=== PATIENT | female | born 1990 | race Caucasian/White ===

== ENCOUNTER 2020-06-01 10:24 | Outpatient (REF) | payer OTHER, SELFPAY ==
[2020-06-01 10:53] LABS: COVID-19 Test Negative (Negative)
== END 2020-06-01 10:25 | disposition home or self-care (01) ==
LOC: HO.EMPCOV 10:24
PROVIDERS: Visit Provider Internal Medicine
DX: Z20.828 Contact with and (suspected) exposure to other viral communicable diseases (principal)
CPT/HCPCS: 36415; 87635; C9803

== ENCOUNTER 2020-06-04 10:46 | Outpatient (REF) | payer OTHER, SELFPAY ==
[2020-06-04 11:07] LABS: COVID-19 Test Negative (Negative)
== END 2020-06-04 10:47 | disposition home or self-care (01) ==
LOC: HO.LAB 10:46
PROVIDERS: Visit Provider Internal Medicine
DX: Z20.822 Contact with and (suspected) exposure to COVID-19 (principal)
CPT/HCPCS: 36415; 87635; C9803

== ENCOUNTER 2020-06-07 07:16 | Outpatient (REF) | payer OTHER, SELFPAY ==
[2020-06-07 07:29] LABS: COVID-19 Test Positive (Negative); IDNOW Serial# 55D5AD1C
== END 2020-06-07 07:17 | disposition home or self-care (01) ==
LOC: HO.EMPCOV 07:16
PROVIDERS: Visit Provider Internal Medicine
DX: Z20.822 Contact with and (suspected) exposure to COVID-19 (principal)
CPT/HCPCS: 36415; 87635; C9803

== ENCOUNTER → 2021-01-18 08:56 | Outpatient (BNVA) | payer OTHER, SELFPAY | PROVIDERS: Visit Provider Internal Medicine | DX: Z76.89 Persons encountering health services in other specified circumstances (principal) | CPT/HCPCS: 99202 ==

== ENCOUNTER 2021-03-02 07:38 | Outpatient (REF) | payer OTHER, SELFPAY ==
[2021-03-02 07:59] LABS: COVID-19 Test Negative (Negative)
== END 2021-03-02 07:39 | disposition home or self-care (01) ==
LOC: HO.LAB 07:38
PROVIDERS: Visit Provider Internal Medicine
DX: Z20.822 Contact with and (suspected) exposure to COVID-19 (principal)
CPT/HCPCS: 36415; 87635; C9803

== ENCOUNTER 2021-03-03 08:14 | Outpatient (REF) | payer OTHER, SELFPAY | END 2021-03-03 08:15 | disposition home or self-care (01) | LOC: HO.LAB 08:14 | PROVIDERS: Visit Provider Internal Medicine | DX: Z20.822 Contact with and (suspected) exposure to COVID-19 (principal) | CPT/HCPCS: C9803; U0003; U0005 ==

== ENCOUNTER 2021-06-18 07:14 | Outpatient (REF) | payer OTHER, SELFPAY ==
[2021-06-18 07:42] LABS: MANUAL DIFF FLAG NO
[2021-06-18 07:48] LABS: Basophils Absolute Auto 0.1 X10*3/uL (0.0-0.2); Basophils Percent Auto 0.5 % (0-2); Eosinophils Absolute Auto 0.6 X10*3/uL (0.0-0.4); Eosinophils Percent Auto 5.4 % (0-4); Hematocrit 39.3 % (37.0-47.0); Imm Gran Abs Auto 0.07 X10*3/uL (0.00-0.03); Imm Gran Pct Auto 0.6 % (0.0-0.4); Lymphocytes Absolute Auto 3.8 X10*3/uL (1.2-4.9); Lymphocytes Percent Auto 31.7 % (20-40); Mean Corpuscular HGB Conc 33.1 g/dl (31.0-35.0); Mean Corpuscular Hemoglobin 28.9 pg (27.0-33.0); Mean Corpuscular Volume 87.3 fL (80.0-98.0); Mean Platelet Volume 10.5 fL (9.4-12.3); Monocytes Absolute Auto 0.6 X10*3/uL (0.1-1.2); Monocytes Percent Auto 5.3 % (2-11); Neutrophils Absolute Auto 6.8 x10*3/uL (2.0-8.3); Neutrophils Percent Auto 56.5 % (45-73); Platelet Count 382 X10*3/uL (160-400); Red Cell Distribution Width 12.8 % (11.0-16.0); White Blood Count 11.9 X10*3/uL (4.8-10.8)
[2021-06-18 08:35] LABS: Erythrocyte Sedimentation Rate 16 MM/HR (0-20)
[2021-06-20 17:32] LABS: Thyroglobulin Antibodies <1 IU/mL (< or = 1); Thyroid Peroxidase Antibodies 5 IU/mL (<9)
[2021-06-20 22:01] LABS: Prot Elec - Albumin 3.9 g/dL (3.8-4.8); Prot Elec - Alpha1 0.3 g/dL (0.2-0.3); Prot Elec - Beta 1 0.5 g/dL (0.4-0.6); Prot Elec - Beta 2 0.4 g/dL (0.2-0.5); Prot Elec - Gamma 1.2 g/dL (0.8-1.7); Prot Elec - Total Protein 7.3 g/dL (6.1-8.1)
[2021-06-27 16:11] LABS: Immunoglobulin E 1458 kU/L (<OR=114)
== END 2021-06-18 07:15 | disposition home or self-care (01) ==
LOC: HO.LAB 07:14
PROVIDERS: PCP Internal Medicine; Visit Provider Allergy & Immunology
DX: K20.0 Eosinophilic esophagitis (principal); L50.9 Urticaria, unspecified
CPT/HCPCS: 36415; 82785; 83520; 84165; 85025; 85652; 86003; 86376; 86800

== ENCOUNTER 2021-09-19 08:15 | Outpatient (REF) | payer OTHER, SELFPAY ==
[2021-09-19 10:29] LABS: HBS Num1 34.26 mIU/mL (0-7.99); ~Hepatitis B Surface Antibody REACTIVE (Nonreactive)
[2021-09-21 05:17] LABS: Mumps Virus IgG Antibody <9.00 AU/mL
== END 2021-09-19 08:16 | disposition home or self-care (01) ==
LOC: HO.LAB 08:15
PROVIDERS: Visit Provider Internal Medicine
DX: Z00.00 Encounter for general adult medical examination without abnormal findings (principal); Z11.1 Encounter for screening for respiratory tuberculosis
CPT/HCPCS: 36415; 86481; 86706; 86735; 86762; 86765; 86787

== ENCOUNTER 2022-07-18 16:27 | Emergency (ER) | payer OTHER, SELFPAY ==
--- NOTE | ~2022-07-18 | XR_ITS ---
EXAMINATION: XR CHEST CLINICAL INFORMATION: Shortness of breath COMPARISON: None TECHNIQUE: Frontal view of the chest was obtained. FINDINGS: No significant abnormality is noted involving the heart, lungs, mediastinum, bony thorax or soft tissues. XR/XR chest 1V IMPRESSION: Unremarkable examination.
--- NOTE | 2022-07-18 16:29 | ED.GENADULT ---
HPI - General Adult General Chief complaint: Arrhythmia/Palpitations Stated complaint: Tachycardia/SOB Time Seen by Provider: 07/18/22 20:32 Related Data Allergies Allergy/AdvReac Type Severity Reaction Status Date / Time amoxicillin Allergy Hives Verified 07/18/22 16:30 neomycin Allergy Hives Verified 07/18/22 16:30 Penicillins [PCN] Allergy Hives Verified 07/18/22 16:30 Sulfa (Sulfonamide Allergy Hives Verified 07/18/22 16:30 Antibiotics) [facility] Social History Social History Advance Directives: No Advance Directives Information Provided: No Physical Exam ED Vital Signs: BMI result Body Mass Index 39.9 Course Course Course Narrative: RME--31yo F w/PMHx asthma c/o tachyacrdia with HR 120-150 for the past 30mins per watch with exertional SOB. Reports associated shakiness. Denies CP, nausea/vomiting, recent travel, history of clots, cigarette smoking, oral OCPs Patient anxious on arrival heart rate 138 EKG, labs, TSH ordered Medications Administered Discontinued Medications Generic Name Dose Route Start Last Admin Trade Name Freq PRN Reason Stop Dose Admin Sodium Chloride 1,000 mls @ 999 mls/hr 07/18/22 20:42 07/18/22 21:53 Ns IV 07/18/22 21:42 Infused .Q1H1M ONE Infusion Lorazepam 2 mg 07/18/22 20:49 07/18/22 20:53 Lorazepam 1 Mg Tablet PO 07/18/22 20:50 2 mg ONCE ONE Administration Medical Decision Making Lab Data 07/18/22 16:56 07/18/22 16:56 Labs: Lab Results 07/18/22 07/18/22 07/18/22 Range/Units 16:56 16:56 16:56 WBC 12.1 H (4.8-10.8) X10*3/uL RBC 4.65 (4.20-5.50) X10*6/uL Hgb 12.9 (12.0-16.0) g/dl Hct 39.1 (37.0-47.0) % MCV 84.1 (80.0-98.0) fL MCH 27.7 (27.0-33.0) pg MCHC 33.0 (31.0-35.0) g/dl RDW 12.7 (11.0-16.0) % Plt Count 389 (160-400) X10*3/uL MPV 11.3 (9.4-12.3) fL Immature Gran % (Auto) 0.3 (0.0-0.4) % Neut % (Auto) 64.7 (45-73) % Lymph % (Auto) 28.2 (20-40) % [place] % (Auto) 4.7 (2-11) % Eos % (Auto) 1.5 (0-4) % Baso % (Auto) 0.6 (0-2) % Lymph # (Auto) 3.4 (1.2-4.9) X10*3/uL [place] # (Auto) 0.6 (0.1-1.2) X10*3/uL Eos # (Auto) 0.2 (0.0-0.4) X10*3/uL Baso # (Auto) 0.1 (0.0-0.2) X10*3/uL Abs Immat Gran (auto) 0.04 H (0.00-0.03) X10*3/uL Absolute Neuts (auto) 7.8 (2.0-8.3) x10*3/uL Absolute Nucleated RBC 0.000 (0.0-0.012) X10*3/uL Nucleated RBC % (auto) 0.0 (0.0-0.2) /100WBC PT 12.2 (10.0-13.1) SEC INR 1.1 (0.9-1.1) Sodium 139 (135-145) mmol/L Potassium 4.1 (3.3-5.1) mmol/L Chloride 104 (96-108) mmol/L Carbon Dioxide 24 (22-29) mmol/L Anion Gap 15 (12-20) BUN 11 (9-16) mg/dL Creatinine 0.80 (0.5-1.4) mg/dL Estim Creat Clear Calc 126.1 Estimated GFR > 60 Random Glucose 95 (60-115) mg/dL Calcium 9.5 (8.4-10.2) mg/dL Magnesium 1.8 (1.6-2.6) mg/dL Total Bilirubin 0.3 (0.0-1.0) mg/dL Direct Bilirubin < 0.2 (0.0-0.5) mg/dL AST 12 (5-31) U/L ALT 16 (0-31) U/L Alkaline Phosphatase 86 (39-117) U/L Troponin I High Sens (<3.5-17.0) ng/L Total Protein 7.6 (6.5-8.0) g/dL Albumin 4.2 (3.5-5.0) g/dL TSH 5.24 H (0.32-4.0) uIU/mL Free T4 1.00 (0.71-1.85) ng/dL Beta HCG, Quant < 2 mIU/mL COVID-19 (FRANK) (Negative) COVID-19 Clin Com Influenza Type A (JOELLE) (Negative) Influenza Type B (JOELLE) (Negative) Influenza A & B Note 07/18/22 07/18/22 07/18/22 Range/Units 16:56 16:56 16:56 WBC (4.8-10.8) X10*3/uL RBC (4.20-5.50) X10*6/uL Hgb (12.0-16.0) g/dl Hct (37.0-47.0) % MCV (80.0-98.0) fL MCH (27.0-33.0) pg MCHC (31.0-35.0) g/dl RDW (11.0-16.0) % Plt Count (160-400) X10*3/uL MPV (9.4-12.3) fL Immature Gran % (Auto) (0.0-0.4) % Neut % (Auto) (45-73) % Lymph % (Auto) (20-40) % [place] % (Auto) (2-11) % Eos % (Auto) (0-4) % Baso % (Auto) (0-2) % Lymph # (Auto) (1.2-4.9) X10*3/uL [place] # (Auto) (0.1-1.2) X10*3/uL Eos # (Auto) (0.0-0.4) X10*3/uL Baso # (Auto) (0.0-0.2) X10*3/uL Abs Immat Gran (auto) (0.00-0.03) X10*3/uL Absolute Neuts (auto) (2.0-8.3) x10*3/uL Absolute Nucleated RBC (0.0-0.012) X10*3/uL Nucleated RBC % (auto) (0.0-0.2) /100WBC PT (10.0-13.1) SEC INR (0.9-1.1) Sodium (135-145) mmol/L Potassium (3.3-5.1) mmol/L Chloride (96-108) mmol/L Carbon Dioxide (22-29) mmol/L Anion Gap (12-20) BUN (9-16) mg/dL Creatinine (0.5-1.4) mg/dL Estim Creat Clear Calc Estimated GFR Random Glucose (60-115) mg/dL Calcium (8.4-10.2) mg/dL Magnesium (1.6-2.6) mg/dL Total Bilirubin (0.0-1.0) mg/dL Direct Bilirubin (0.0-0.5) mg/dL AST (5-31) U/L ALT (0-31) U/L Alkaline Phosphatase (39-117) U/L Troponin I High Sens < 3.5 (<3.5-17.0) ng/L Total Protein (6.5-8.0) g/dL Albumin (3.5-5.0) g/dL TSH (0.32-4.0) uIU/mL Free T4 (0.71-1.85) ng/dL Beta HCG, Quant mIU/mL COVID-19 (FRANK) Negative (Negative) COVID-19 Clin Com See Note Influenza Type A (JOELLE) Negative (Negative) Influenza Type B (JOELLE) Negative (Negative) Influenza A & B Note See Note Discharge Plan Discharge Clinical Impression: Palpitations, Sinus tachycardia, Anxiety Patient Disposition: Home, Self-Care Instructions: Tachycardia (ED) Referrals: Tammie Gibson MD [Primary Care Provider] - Lyndon Pompa MD [Physician] - Stand Alone Forms: Work/School Release Interventions: ED Discharge Assessment Last Done: 07/18/22 22:13 Discharge Date/Time: 07/18/22 22:19
--- NOTE | 2022-07-18 16:30 | ECG_ITS ---
Test Reason : ARRHYTHMIA/PAPLUTATION Blood Pressure : / mmHG Vent. Rate : 125 BPM Atrial Rate : 125 BPM P-R Int : 140 ms QRS Dur : 078 ms QT Int : 304 ms P-R-T Axes : 064 052 034 degrees QTc Int : 438 ms Sinus tachycardia Otherwise normal ECG No previous ECGs available Referred By: Charito Denis Electronically Signed By:BRYCE LIMON
[2022-07-18 16:31] VITALS: BP 148/85; PULSE 135; RESP 18; TEMP 36.8; O2SAT 98; BMI 39.9
[2022-07-18 17:05] LABS: MANUAL DIFF FLAG NO
[2022-07-18 17:20] LABS: Basophils Absolute Auto 0.1 X10*3/uL (0.0-0.2); Basophils Percent Auto 0.6 % (0-2); Eosinophils Absolute Auto 0.2 X10*3/uL (0.0-0.4); Eosinophils Percent Auto 1.5 % (0-4); Hematocrit 39.1 % (37.0-47.0); Hemoglobin 12.9 g/dl (12.0-16.0); Imm Gran Abs Auto 0.04 X10*3/uL (0.00-0.03); Imm Gran Pct Auto 0.3 % (0.0-0.4); Lymphocytes Absolute Auto 3.4 X10*3/uL (1.2-4.9); Lymphocytes Percent Auto 28.2 % (20-40); Mean Corpuscular Hemoglobin 27.7 pg (27.0-33.0); Mean Corpuscular Volume 84.1 fL (80.0-98.0); Mean Platelet Volume 11.3 fL (9.4-12.3); Monocytes Absolute Auto 0.6 X10*3/uL (0.1-1.2); Monocytes Percent Auto 4.7 % (2-11); Neutrophils Absolute Auto 7.8 x10*3/uL (2.0-8.3); Neutrophils Percent Auto 64.7 % (45-73); Platelet Count 389 X10*3/uL (160-400); Red Blood Count 4.65 X10*6/uL (4.20-5.50); Red Cell Distribution Width 12.7 % (11.0-16.0); White Blood Count 12.1 X10*3/uL (4.8-10.8)
[2022-07-18 17:27] LABS: INTERNATIONAL NORM RATIO 1.1 (0.9-1.1); Prothrombin Time 12.2 SEC (10.0-13.1)
[2022-07-18 17:31] LABS: COVID-19 Test Negative (Negative); IDNOW Serial# 9DB6401D; IDNOW Serial# BCCEAD1C; Influenza A Negative (Negative); Influenza B2 Negative (Negative)
[2022-07-18 17:45] LABS: Alanine Aminotransferase 16 U/L (0-31); Albumin Level 4.2 g/dL (3.5-5.0); Alkaline Phosphatase 86 U/L (39-117); Anion Gap 15 (12-20); Aspartate Amino Transferase 12 U/L (5-31); Bilirubin Direct < 0.2 mg/dL (0.0-0.5); Bilirubin Total 0.3 mg/dL (0.0-1.0); Blood Urea Nitrogen 11 mg/dL (9-16); Calcium 9.5 mg/dL (8.4-10.2); Carbon Dioxide 24 mmol/L (22-29); Chloride 104 mmol/L (96-108); Creatinine Clr Calc Pharmacy 126.1; Estimated Glomerular Filt Rate > 60; Glucose Random 95 mg/dL (60-115); Magnesium 1.8 mg/dL (1.6-2.6); Potassium 4.1 mmol/L (3.3-5.1); Sodium 139 mmol/L (135-145); Total Protein 7.6 g/dL (6.5-8.0)
[2022-07-18 17:49] LABS: Troponin-I High Sensitivity < 3.5 ng/L (<3.5-17.0)
[2022-07-18 18:08] LABS: HCG Quantitative < 2 mIU/mL; TSH reflex Free T4 5.24 uIU/mL (0.32-4.0)
[2022-07-18 19:56] VITALS: PULSE 109; RESP 12; O2SAT 98
[2022-07-18 20:18] VITALS: BP 133/71; PULSE 105; RESP 15; O2SAT 97
--- NOTE | 2022-07-18 20:35 | PC.NURSE ---
Pt resting on stretcher at this time, reports feeling possibly a migraine coming on, denies any other pain at this time, all vitals WNL except for HR which is currently 112. MD Huerta in seeing pt at this time
--- NOTE | 2022-07-18 20:43 | ED_ITS ---
HPI - Arrhythmia/Palpitations General Chief Complaint: Arrhythmia/Palpitations Stated Complaint: Tachycardia/SOB Time Seen by Provider: 07/18/22 20:32 Source: patient and family (Mother) Mode of arrival: ambulatory Limitations: no limitations History of Present Illness HPI narrative: 31-year-old female walked into the emergency department after noticed a palpitation and rapid heartbeat on her watch. Patient stated that she suffer from anxiety and feel anxious while she is in the emergency department which is not helping her tachycardia, no CP, no SOB, no known thyroid problem, no dizziness. Related Data Allergies Allergy/AdvReac Type Severity Reaction Status Date / Time amoxicillin Allergy Hives Verified 07/18/22 16:30 neomycin Allergy Hives Verified 07/18/22 16:30 Penicillins [PCN] Allergy Hives Verified 07/18/22 16:30 Sulfa (Sulfonamide Allergy Hives Verified 07/18/22 16:30 Antibiotics) Review of Systems Review of Systems: All other systems are reviewed and are negative Constitutional: Reports as per HPI and Reports no additional constitutional complaints Eyes: Reports as per HPI and Reports no additional eye complaints Reports system reviewed and no additional complaints, except as documented Cardiovascular: Reports as per HPI and Reports no additional cardiovascular complaints Respiratory: Reports as per HPI and Reports no additional respiratory complaints Gastrointestinal: Reports as per HPI and Reports no additional gastrointestinal complaints Genitourinary: Reports no additional female genitourinary complaints Musculoskeletal: Reports no additional musculoskeletal complaints Skin/Breast: Reports system reviewed and no additional complaints, except as docu Psychiatric: Reports no additional psychiatric complaints Endocrine: Reports no additional endocrine complaints Hematologic/Lymphatic: Reports no additional hematologic/lymphatic complaints Allergic/Immunologic: Reports no additional allergic/immunologic complaints Reports system reviewed and no additional complaints, except as documented and Reports Abnormal speech present [facility] Social History Social History Advance Directives: No Advance Directives Information Provided: No Physical Exam Vital Signs: Vital Signs: Last Vital Signs Temp 98.2 F 07/18/22 16:31 Pulse 105 H 07/18/22 20:18 Resp 15 07/18/22 20:18 BP 133/71 07/18/22 20:18 Pulse Ox 97 07/18/22 20:18 O2 Del Method 07/18/22 20:18 BMI result Body Mass Index 39.9 Vital signs have been reviewed as appeared to be correct. Blood pressure normal. Heart rate normal. Respiration rate normal. Temperature normal. Oxygen saturation normal. Appearance: Alert. Oriented X3. No acute distress. Head: Normal external exam. Normocephalic. Atraumatic. No Haley signs noted. No raccoon eyes noted Eyes: PERRLA. EOMI. Conjunctiva and sclera normal. Eyelids normal. ENT: TM's Normal. Pharynx normal. Uvula midline. Moist mucous membranes. No trismus noted. No drooling noted. No muffled voice noted. Neck: Normal inspection. Neck supple. FROM. No adenopathy. Thyroid Normal. No meningeal signs. No neck mass noted. CVS: Normal heart rate and rhythm. Heart sound normal. No murmurs noted. Pulses normal throughout. Respiratory: No respiratory distress. Painless inspiration. Breath sounds normal. No wheezes/rales/rhonchi noted. Chest nontender. No accessory muscle usage noted or decreased air movement noted. Abdomen: Soft and nontender. Bowel sounds normal in all 4 quadrants. No distention noted. No organomegaly noted. No visible injury noted. Back: No CVA tenderness. Full range of motion noted. Skin: Skin warm and dry. Normal skin color. Normal skin turgor. No rashes/lesions/lacerations noted. Extremities: No lower extremity edema. Extremities exhibit normal range of motion. Extremities nontender. Neuro: Oriented X 3. Cranial nerve exam: II-XII are grossly intact No motor deficit. No sensory deficit. Reflexes normal. Course Course Course Narrative: 31-year-old female otherwise healthy came in for evaluation of sinus tachycardia. Patient appear anxious which could be the underlying cause of her symptoms. Elevation of TSH with normal free T4 which could be a subclinical hypothyroidism but grandma no treatment today. Patient improved after Ativan and IV normal saline. Patient is stable and asymptomatic no urgent need for beta cristian start will discharge to follow-up with PCP. Medical Decision Making Differential Diagnosis Differential Diagnoses: The differential diagnosis associated with the presentation includes (Palpitation, anxiety, sinus tachycardia, electrolyte disturbance, dehydration.) Lab Data MDM Lab Attestation statement: I reviewed the patient's lab results. 07/18/22 16:56 07/18/22 16:56 Labs: Lab Results 07/18/22 07/18/22 07/18/22 Range/Units 16:56 16:56 16:56 WBC 12.1 H (4.8-10.8) X10*3/uL RBC 4.65 (4.20-5.50) X10*6/uL Hgb 12.9 (12.0-16.0) g/dl Hct 39.1 (37.0-47.0) % MCV 84.1 (80.0-98.0) fL MCH 27.7 (27.0-33.0) pg MCHC 33.0 (31.0-35.0) g/dl RDW 12.7 (11.0-16.0) % Plt Count 389 (160-400) X10*3/uL MPV 11.3 (9.4-12.3) fL Immature Gran % (Auto) 0.3 (0.0-0.4) % Neut % (Auto) 64.7 (45-73) % Lymph % (Auto) 28.2 (20-40) % [place] % (Auto) 4.7 (2-11) % Eos % (Auto) 1.5 (0-4) % Baso % (Auto) 0.6 (0-2) % Lymph # (Auto) 3.4 (1.2-4.9) X10*3/uL [place] # (Auto) 0.6 (0.1-1.2) X10*3/uL Eos # (Auto) 0.2 (0.0-0.4) X10*3/uL Baso # (Auto) 0.1 (0.0-0.2) X10*3/uL Abs Immat Gran (auto) 0.04 H (0.00-0.03) X10*3/uL Absolute Neuts (auto) 7.8 (2.0-8.3) x10*3/uL Absolute Nucleated RBC 0.000 (0.0-0.012) X10*3/uL Nucleated RBC % (auto) 0.0 (0.0-0.2) /100WBC PT 12.2 (10.0-13.1) SEC INR 1.1 (0.9-1.1) Sodium 139 (135-145) mmol/L Potassium 4.1 (3.3-5.1) mmol/L Chloride 104 (96-108) mmol/L Carbon Dioxide 24 (22-29) mmol/L Anion Gap 15 (12-20) BUN 11 (9-16) mg/dL Creatinine 0.80 (0.5-1.4) mg/dL Estim Creat Clear Calc 126.1 Estimated GFR > 60 Random Glucose 95 (60-115) mg/dL Calcium 9.5 (8.4-10.2) mg/dL Magnesium 1.8 (1.6-2.6) mg/dL Total Bilirubin 0.3 (0.0-1.0) mg/dL Direct Bilirubin < 0.2 (0.0-0.5) mg/dL AST 12 (5-31) U/L ALT 16 (0-31) U/L Alkaline Phosphatase 86 (39-117) U/L Troponin I High Sens (<3.5-17.0) ng/L Total Protein 7.6 (6.5-8.0) g/dL Albumin 4.2 (3.5-5.0) g/dL TSH 5.24 H (0.32-4.0) uIU/mL Free T4 1.00 (0.71-1.85) ng/dL Beta HCG, Quant < 2 mIU/mL COVID-19 (FRANK) (Negative) COVID-19 Clin Com Influenza Type A (JOELLE) (Negative) Influenza Type B (JOELLE) (Negative) Influenza A & B Note 07/18/22 07/18/22 07/18/22 Range/Units 16:56 16:56 16:56 WBC (4.8-10.8) X10*3/uL RBC (4.20-5.50) X10*6/uL Hgb (12.0-16.0) g/dl Hct (37.0-47.0) % MCV (80.0-98.0) fL MCH (27.0-33.0) pg MCHC (31.0-35.0) g/dl RDW (11.0-16.0) % Plt Count (160-400) X10*3/uL MPV (9.4-12.3) fL Immature Gran % (Auto) (0.0-0.4) % Neut % (Auto) (45-73) % Lymph % (Auto) (20-40) % [place] % (Auto) (2-11) % Eos % (Auto) (0-4) % Baso % (Auto) (0-2) % Lymph # (Auto) (1.2-4.9) X10*3/uL [place] # (Auto) (0.1-1.2) X10*3/uL Eos # (Auto) (0.0-0.4) X10*3/uL Baso # (Auto) (0.0-0.2) X10*3/uL Abs Immat Gran (auto) (0.00-0.03) X10*3/uL Absolute Neuts (auto) (2.0-8.3) x10*3/uL Absolute Nucleated RBC (0.0-0.012) X10*3/uL Nucleated RBC % (auto) (0.0-0.2) /100WBC PT (10.0-13.1) SEC INR (0.9-1.1) Sodium (135-145) mmol/L Potassium (3.3-5.1) mmol/L Chloride (96-108) mmol/L Carbon Dioxide (22-29) mmol/L Anion Gap (12-20) BUN (9-16) mg/dL Creatinine (0.5-1.4) mg/dL Estim Creat Clear Calc Estimated GFR Random Glucose (60-115) mg/dL Calcium (8.4-10.2) mg/dL Magnesium (1.6-2.6) mg/dL Total Bilirubin (0.0-1.0) mg/dL Direct Bilirubin (0.0-0.5) mg/dL AST (5-31) U/L ALT (0-31) U/L Alkaline Phosphatase (39-117) U/L Troponin I High Sens < 3.5 (<3.5-17.0) ng/L Total Protein (6.5-8.0) g/dL Albumin (3.5-5.0) g/dL TSH (0.32-4.0) uIU/mL Free T4 (0.71-1.85) ng/dL Beta HCG, Quant mIU/mL COVID-19 (FRANK) Negative (Negative) COVID-19 Clin Com See Note Influenza Type A (JOELLE) Negative (Negative) Influenza Type B (JOELLE) Negative (Negative) Influenza A & B Note See Note Independent Interpretation I performed an independent interpretation of an: EKG (Sinus tachycardia at 125 beats per minutes, normal axis deviation, normal intervals, no ST-T changes, no old EKG to compare.) and Plain X-Ray (Chest: No acute intrathoracic pathology.) Radiology Impression Discussion of test interpretation with radiology: I have reviewed the radiologist's reading. Discharge Plan Discharge Clinical Impression: Palpitations, Sinus tachycardia, Anxiety Patient Disposition: Home, Self-Care Instructions: Tachycardia (ED) Referrals: Tammie Gibson MD [Primary Care Provider] - Lyndon Pompa MD [Physician] -
[2022-07-18] MEDS: 0.9 % Sodium Chloride 1,000 ML 999 ML IV (20:49)
[2022-07-18] MEDS: LORazepam 1 MG TABLET 2 MG PO (20:53)
[2022-07-18 21:03] VITALS: BP 134/78; PULSE 96; RESP 12; O2SAT 100
[2022-07-18 21:59] VITALS: BP 139/90; PULSE 97; RESP 15; O2SAT 100
== END 2022-07-18 22:19 | disposition home or self-care (01) ==
PROVIDERS: Physician Assistant; Emergency Provider Emergency Medicine; PCP Internal Medicine
DX: R00.2 Palpitations (principal); R00.0 Tachycardia, unspecified; F41.9 Anxiety disorder, unspecified; Z20.822 Contact with and (suspected) exposure to COVID-19
CPT/HCPCS: 36415; 71045; 80048; 80076; 83735; 84439; 84443; 84484; 84702; 85025; 85610; 87502; 87635; 93005; 96360; 99284; 99285

== ENCOUNTER 2024-07-24 08:00 | Outpatient (RCR) | payer OTHER, SELFPAY | END 2025-02-19 15:05 | disposition home or self-care (01) | LOC: HO.PTWFD 08:00 | DX: M54.9 Dorsalgia, unspecified (principal) | CPT/HCPCS: 97014; 97110; 97161; 97530; 97535 ==

== ENCOUNTER 2024-07-24 09:05 | Outpatient (REF) | payer OTHER, SELFPAY ==
--- OUTSIDE RECORDS SUMMARY | 2024-07-24 09:52 | XMS_ITS | Encounter Summary ---
Author Organization [facility] Address [address] [place] [address] Phone Care Team Providers Care Airplane Flight Attendant Name Role Phone Cheri Garcia MD Primary Care Provider [phone] Encounter Details Date Type Department Care Team (Late st Contact Info) Description 09/10/2009 Documentation [facility] [place] Family Medicine [address] [place] [address] Family Medicine, Physician [address] [place], [place] [phone] Social History Tobacco Use Types Packs/Day Years Used Date Smoking Tobacco: Never Assessed Comments Unknown Sex and Gender Information Value Date Recorded Sex Assigned at Not on file Legal Sex Female 4:47 PM EDT Gender Identity Not on file Sexual Orientation Not on file documented as of this encounter Plan of Treatment Not on file documented as of this encounter Visit Diagnoses Not on filedocumented in this encounter Care Teams Airplane Flight Attendant Relationship Specialty Start Date End Date Cheri Garcia MD [address] [place] [address] [place] [address] PCP - General 01/05/17 11/16/22 documented as of this encounter
--- OUTSIDE RECORDS SUMMARY | 2024-07-24 09:52 | XMS_ITS | Encounter Summary ---
Author Organization [facility] Address [address] [place] [address] Phone Care Team Providers Care Finish Production Manager Name Role Phone Cheri Garcia MD Primary Care Provider [phone] Encounter Details Date Type Department Care Team (Late st Contact Info) Description 04/12/2015 Documentation [facility] [place] Family Medicine [address] [place] [address] Family Medicine, Physician [address] [place] [address] Social History Tobacco Use Types Packs/Day Years Used Date Smoking Tobacco: Never Comments:Never smoker Comments Unknown Sex and Gender Information Value Date Recorded Sex Assigned at Not on file Legal Sex Female 4:47 PM EDT Gender Identity Not on file Sexual Orientation Not on file documented as of this encounter Plan of Treatment Not on file documented as of this encounter Visit Diagnoses Not on filedocumented in this encounter Care Teams Finish Production Manager Relationship Specialty Start Date End Date Cheri Garcia MD [address] [place] [address] PCP - General 01/05/17 11/16/22 documented as of this encounter
--- OUTSIDE RECORDS SUMMARY | 2024-07-24 09:52 | XMS_ITS | Encounter Summary ---
Author Organization [facility] Address [address] [place] [address] Phone Care Team Providers Care Line Driver Name Role Phone Cheri Garcia MD Primary Care Provider [phone] Encounter Details Date Type Department Care Team (Late st Contact Info) Description 12/12/2012 Documentation [facility] Family Medicine [address] [place] [address] Family Medicine, Physician [address] [place], [place] [phone] Social History Tobacco Use Types Packs/Day Years [...] on filedocumented in this encounter Care Teams Line Driver Relationship Specialty Start Date End Date Cheri Garcia MD [address] [place] [address] [place] [address] PCP - General 01/05/17 11/16/22 documented as of this encounter
--- OUTSIDE RECORDS SUMMARY | 2024-07-24 09:52 | XMS_ITS | Encounter Summary ---
Author Organization [facility] Address [address] [place] [address] Phone Care Team Providers Care Pharmacy Coordinator Name Role Phone Cheri Garcia MD Primary Care Provider [phone] Encounter Details Date Type Department Care Team (Late st Contact Info) Description 03/21/2011 Documentation [facility] [place] Family Medicine [address] [place] [address] Family Medicine, Physician [address] [place], [place] [phone] Social History Tobacco Use Types Packs/Day Years [...] on filedocumented in this encounter Care Teams Pharmacy Coordinator Relationship Specialty Start Date End Date Cheri Garcia MD [address] [place] [address] [place] [address] PCP - General 01/05/17 11/16/22 documented as of this encounter
--- OUTSIDE RECORDS SUMMARY | 2024-07-24 09:52 | XMS_ITS | Clinical Summary ---
Author Organization [facility] Address [address] [place] [address] Phone Care Team Providers Care Preschool Paraprofessional Name Role Phone Unavailable Primary Care Provider Unavailabl e Immunizations Immunization Administration Dates Next Due DTaP 5 05/07/1996, 4,04/05/1992,02/05 HPV, Quadrivalent 11/15/2007,07/16/2007,04/26/20 07 Hep B, ped/adol 09/07/1992,01/12/1992,1991 Hib (HbOC) 05/04/1993,04/05/1992,02/06/1992 IPV 05/07/1996, 4,04/05/1992,02/05 MMR 05/07/1996,05/04/1993 Meningococcal Conj (Menactra) MCV4P 12/16/2008 Td (adult) (MBL), 2 Lf tetan us toxoid, PF, adsorbed 12/23/2003 Tdap 12/16/2008 Varicella 12/16/2008,09/15/1999 Family History Relation Name Status Comments Father Father: , Cance r - Mother Mother: Migrain es, Asthma, polyps removed from colon Other 1 uncle: Asthma Other 2 Family history of Asthma Social History Tobacco Use Types Packs/Day Years Used Date Smoking Tobacco: Never Comments:Never smoker Comments Unknown Sex and Gender Information Value Date Recorded Sex Assigned at Not on file Legal Sex Female 4:47 PM EDT Gender Identity Not on file Sexual Orientation Not on file Last Filed Vital Signs Vital Sign Reading Time Taken Comments Blood Pressure 120/80 09/25/2012 12:00 AM EDT Pulse 92 04/09/2012 12:00 AM EST Temperature 36.7 ??C (98 ??F) 09/25/2012 12:00 AM EDT Respiratory Rate - - Oxygen Saturation 98% 01/30/2012 12:00 AM EDT Inhaled Oxygen Concentration - - Weight 82.1 kg (181 lb) 09/25/2012 12:00 AM EDT Height 163.8 cm (5' 4.5 ) 09/25/2012 12:00 AM ED T Body Mass Index 30.59 09/25/2012 12:00 AM EDT Plan of Treatment Health Maintenance Due Date Last Done Comments DTaP,Tdap,and Td Vaccines (6 - Td or Tdap) 12/16/2018 12/16/2008, 12/23/2003, 05/07/1996, Additional history exists Influenza Vaccines (#1) 2023 COVID-19 Vaccine ( season) 2024 Hepatitis B Vaccines Completed 09/07/1992, 01/12/1992, 1991 HIB Vaccines Completed 05/04/1993, 01/1992, 02/06/1992 IPV Vaccines Completed 05/07/1996, 05/1993, 04/05/1992, Additional history exists MMR Vaccines Completed 05/07/1996, 05/04/1993 HPV Vaccines Completed 11/15/2007, 06/28, 04/26/2007 Meningococcal Vaccine Completed 12/16/2008 Varicella Vaccines Completed 12/16/2008, 09/15/1999 Hepatitis A Vaccines Aged Out No long er eligible based on patient's age to complete this topic Men B Vaccine Aged Out No longer elig ible based on patient's age to complete this topic Pneumococcal Vaccine Aged Out No long er eligible based on patient's age to complete this topic
--- OUTSIDE RECORDS SUMMARY | 2024-07-24 09:52 | XMS_ITS | Encounter Summary ---
Author Organization [facility] Address [address] [place] [address] Phone Care Team Providers Care Body Shop Mechanic Name Role Phone Cheri Garcia MD Primary Care Provider [phone] Encounter Details Date Type Department Care Team (Late st Contact Info) Description 03/21/2011 Documentation [facility] [place] [address] [place] [address] Family Medicine, Physician [address] [place], [place] [phone] Social History Tobacco Use Types Packs/Day Years [...] on filedocumented in this encounter Care Teams Body Shop Mechanic Relationship Specialty Start Date End Date Cheri Garcia MD [address] [place] [address] [place] [address] PCP - General 01/05/17 11/16/22 documented as of this encounter
--- OUTSIDE RECORDS SUMMARY | 2024-07-24 09:52 | XMS_ITS | Encounter Summary ---
Author Organization [facility] Address [address] [place] [address] Phone Care Team Providers Care [employer] Dean Name Role Phone Cheri Garcia MD Primary Care Provider [phone] Encounter Details Date Type Department Care Team (Late st Contact Info) Description 11/02/2011 Documentation [facility] [place] Family Medicine [address] [place] [address] Family Medicine, Physician [address] [place], [place] [phone] Social History Tobacco Use Types Packs/Day Years [...] on filedocumented in this encounter Care Teams [employer] Dean Relationship Specialty Start Date End Date Cheri Garcia MD [address] [place] [address] [place] [address] PCP - General 01/05/17 11/16/22 documented as of this encounter
--- OUTSIDE RECORDS SUMMARY | 2024-07-24 09:52 | XMS_ITS | Encounter Summary ---
Author Organization [facility] Address [address] [place] [address] Phone Care Team Providers Care Firearms Instructor Name Role Phone Cheri Garcia MD Primary Care Provider [phone] Encounter Details Date Type Department Care Team (Late st Contact Info) Description 02/05/2012 Documentation [facility] [place] [facility] [address] [place] [address] Family Medicine, Physician [address] [place], [place] [phone] Social History Tobacco Use Types Packs/Day Years [...] on filedocumented in this encounter Care Teams Firearms Instructor Relationship Specialty Start Date End Date Cheri Garcia MD [address] [place] [address] [place] [address] PCP - General 01/05/17 11/16/22 documented as of this encounter
--- OUTSIDE RECORDS SUMMARY | 2024-07-24 09:52 | XMS_ITS | Encounter Summary ---
Author Organization [facility] Address [address] [place] [address] Phone Care Team Providers Care Wire Coiler Name Role Phone Cheri Garcia MD Primary Care Provider [phone] Encounter Details Date Type Department Care Team (Late st Contact Info) Description 07/04/2012 Documentation [facility] [place] [address] [place] [address] Family Medicine, Physician [address] [place], [place] [phone] Social History Tobacco Use Types Packs/Day Years [...] on filedocumented in this encounter Care Teams Wire Coiler Relationship Specialty Start Date End Date Cheri Garcia MD [address] [place] [address] [place] [address] PCP - General 01/05/17 11/16/22 documented as of this encounter
--- OUTSIDE RECORDS SUMMARY | 2024-07-24 09:52 | XMS_ITS | Encounter Summary ---
Author Organization [facility] Address [address] [place] [address] Phone Care Team Providers Care Waterproof Bag Cutting Machine Operator Name Role Phone Cheri Garcia MD Primary Care Provider [phone] Encounter Details Date Type Department Care Team (Late st Contact Info) Description 01/11/2017 Conversion Encounter [facility] [address] [place] [address] Social History Tobacco Use Types Packs/Day Years [...] on filedocumented in this encounter Care Teams Waterproof Bag Cutting Machine Operator Relationship Specialty Start Date End Date Cheri Garcia MD [address] [place] [address] PCP - General 01/05/17 11/16/22 documented as of this encounter
--- OUTSIDE RECORDS SUMMARY | 2024-07-24 09:52 | XMS_ITS | Encounter Summary ---
Author Organization [facility] Address [address] [place] [address] Phone Care Team Providers Care Resource Management Planner Name Role Phone Cheri Garcia MD Primary Care Provider [phone] Encounter Details Date Type Department Care Team (Late st Contact Info) Description 06/29/2011 Documentation [facility] [place] [address] [place] [address] Family Medicine, Physician [address] [place], [place] [phone] Social History Tobacco Use Types Packs/Day Years [...] on filedocumented in this encounter Care Teams Resource Management Planner Relationship Specialty Start Date End Date Cheri Garcia MD [address] [place] [address] [place] [address] PCP - General 01/05/17 11/16/22 documented as of this encounter
--- OUTSIDE RECORDS SUMMARY | 2024-07-24 09:52 | XMS_ITS | Encounter Summary ---
Author Organization [facility] Address [address] [place] [address] Phone Care Team Providers Care Unpaid Intern Name Role Phone Cheri Garcia MD Primary Care Provider [phone] Encounter Details Date Type Department Care Team (Late st Contact Info) Description 08/24/2011 Documentation [facility] [place] [address] [place] [address] Family Medicine, Physician [address] [place], [place] [phone] Social History Tobacco Use Types Packs/Day Years [...] on filedocumented in this encounter Care Teams Unpaid Intern Relationship Specialty Start Date End Date Cheri Garcia MD [address] [place] [address] [place] [address] PCP - General 01/05/17 11/16/22 documented as of this encounter
[2024-07-24 11:32] LABS: MANUAL DIFF FLAG NO
[2024-07-24 12:02] LABS: Basophils Absolute Auto 0.1 X10*3/uL (0.0-0.2); Eosinophils Absolute Auto 0.6 X10*3/uL (0.0-0.4); Eosinophils Percent Auto 7.6 % (0-4); Hemoglobin 13.4 g/dl (12.0-16.0); Imm Gran Abs Auto 0.02 X10*3/uL (0.00-0.03); Imm Gran Pct Auto 0.3 % (0.0-0.4); Lymphocytes Absolute Auto 2.1 X10*3/uL (1.2-4.9); Lymphocytes Percent Auto 28.7 % (20-40); Mean Corpuscular HGB Conc 32.7 g/dl (31.0-35.0); Mean Corpuscular Hemoglobin 28.5 pg (27.0-33.0); Mean Platelet Volume 11.5 fL (9.4-12.3); Monocytes Absolute Auto 0.4 X10*3/uL (0.1-1.2); Monocytes Percent Auto 5.7 % (2-11); Neutrophils Absolute Auto 4.1 x10*3/uL (2.0-8.3); Neutrophils Percent Auto 56.7 % (45-73); Platelet Count 338 X10*3/uL (160-400); Red Blood Count 4.71 X10*6/uL (4.20-5.50); Red Cell Distribution Width 12.1 % (11.0-16.0); White Blood Count 7.2 X10*3/uL (4.8-10.8)
[2024-07-24 12:37] LABS: Anion Gap 11 (12-20); Blood Urea Nitrogen 8 mg/dL (9-16); C Reactive Protein 2.51 mg/dL (< or = 0.50); Calcium 9.1 mg/dL (8.4-10.2); Carbon Dioxide 25 mmol/L (22-29); Chloride 106 mmol/L (96-108); Cholesterol 189 mg/dL (<200); Estimated Glomerular Filt Rate > 60; Glucose Random 97 mg/dL (60-115); HDL Cholesterol 55 mg/dL (>40); LDL Cholesterol Calculated 115 mg/dL (<100); Potassium 4.2 mmol/L (3.3-5.1); Sodium 138 mmol/L (135-145); Triglycerides 97 mg/dL (<150)
[2024-07-24 12:38] LABS: Erythrocyte Sedimentation Rate 23 MM/HR (0-20)
[2024-07-24 12:53] LABS: Vitamin D 25-OH Total 20.8 ng/mL (>30)
[2024-07-24 12:59] LABS: ~HepC Num1 0.32 S/CO (0.00-0.79); ~Hepatitis C Antibody Nonreactive (Nonreactive)
== END 2024-07-24 09:06 | disposition home or self-care (01) ==
LOC: HO.WFDLDS 09:05
DX: Z00.00 Encounter for general adult medical examination without abnormal findings (principal); Z11.59 Encounter for screening for other viral diseases; E55.9 Vitamin D deficiency, unspecified; M25.472 Effusion, left ankle
CPT/HCPCS: 36415; 80048; 80061; 82306; 85025; 85652; 86140; 86803

== ENCOUNTER → 2024-09-05 08:05 | Outpatient (BNV) | payer OTHER, SELFPAY | PROVIDERS: Visit Provider Radiology Diagnostic Radiology | DX: M47.816 Spondylosis without myelopathy or radiculopathy, lumbar region (principal); M51.26 Other intervertebral disc displacement, lumbar region | CPT/HCPCS: 72148 ==

== ENCOUNTER 2024-09-05 08:08 | Outpatient (REF) | payer OTHER, SELFPAY ==
--- NOTE | ~2024-09-05 | MR_ITS ---
EXAMINATION: MR LUMBAR SPINE WITHOUT IV CONTRAST History: LOW BACK PAIN Technique: Sagittal T1, T2 and STIR, and axial T1 and T2 weighted images of the lumbar spine were obtained per departmental protocol. Comparison: None available. Findings: The vertebral bodies maintain normal height, alignment, and marrow signal intensity. 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 There is mild disc desiccation at the L3-4 and L4-5 levels. At T12-L1,there is no evidence of disc herniation, central spinal stenosis, or neural foraminal narrowing. At L1-2, there is no evidence of disc herniation, central spinal stenosis, or neural foraminal narrowing. At L2-3, there is no evidence of disc herniation, central spinal stenosis, or neural foraminal narrowing. At L3-4, there is a mild disc bulge which is slightly asymmetric to the right. There is a small superimposed central disc protrusion. There is no central spinal or neural foraminal stenosis. At L4-5, there is a small central disc protrusion with associated annular tear. There is mild facet osteoarthritis and ligamentum flavum hypertrophy without central spinal or neural foraminal stenosis. At L5-S1, there is no evidence of disc herniation, central spinal stenosis, or neural foraminal narrowing. The conus terminates at the T12-L1 level and demonstrates normal signal intensity. The visualized paraspinal soft tissues are unremarkable. MR/MR lumbar spine wo con Impression: 1. 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 2. Mild disc bulge at L3-4 with a small superimposed central disc protrusion. 3. Small central disc protrusion with annular tear at the L4-5 level. Electronically signed by: Kike Gama MD 09/05/2024 09:00 AM EDT
--- OUTSIDE RECORDS SUMMARY | 2024-09-05 08:14 | XMS_ITS | Encounter Summary ---
Author Organization [facility] Address [address] [place] [address] Phone Care Team Providers Care Faucet Polisher Name Role Phone Cheri Garcia MD Primary Care Provider [phone] Encounter Details Date Type Department Care Team (Late st Contact Info) Description 01/11/2017 Conversion Encounter [facility] [address] [place] [address] Social History Tobacco Use Types Packs/Day Years [...] on filedocumented in this encounter Care Teams Faucet Polisher Relationship Specialty Start Date End Date Cheri Garcia MD [address] [place] [address] PCP - General 01/05/17 11/16/22 documented as of this encounter
--- OUTSIDE RECORDS SUMMARY | 2024-09-05 08:14 | XMS_ITS | Encounter Summary ---
Author Organization [facility] Address [address] [place] [address] Phone Care Team Providers Care Public Works Laborer Name Role Phone Cheri Garcia MD Primary Care Provider [phone] Encounter Details Date Type Department Care Team (Late st Contact Info) Description 02/05/2012 Documentation [facility] [place] [address] [place] [address] Family Medicine, Physician [address] [place], [place] [phone] Social History Tobacco Use Types Packs/Day Years [...] on filedocumented in this encounter Care Teams Public Works Laborer Relationship Specialty Start Date End Date Cheri Garcia MD [address] [place] [address] [place] [address] PCP - General 01/05/17 11/16/22 documented as of this encounter
--- OUTSIDE RECORDS SUMMARY | 2024-09-05 08:14 | XMS_ITS | Encounter Summary ---
Author Organization [facility] Address [address] [place] [address] Phone Care Team Providers Care Net Mobile Developer Name Role Phone Cheri Garcia MD Primary Care Provider [phone] Encounter Details Date Type Department Care Team (Late st Contact Info) Description 06/29/2011 Documentation [facility] [place] [address] [place] [address] Family Medicine, Physician [address] [place], [place] [phone] Social History Tobacco Use Types Packs/Day Years [...] on filedocumented in this encounter Care Teams Net Mobile Developer Relationship Specialty Start Date End Date Cheri Garcia MD [address] [place] [address] [place] [address] PCP - General 01/05/17 11/16/22 documented as of this encounter
--- OUTSIDE RECORDS SUMMARY | 2024-09-05 08:14 | XMS_ITS | Encounter Summary ---
Author Organization [facility] Address [address] [place] [address] Phone Care Team Providers Care Fine Grade Operator Name Role Phone Cheri Garcia MD Primary Care Provider [phone] Encounter Details Date Type Department Care Team (Late st Contact Info) Description 11/02/2011 Documentation [facility] [place] [address] [place] [address] Family Medicine, Physician [address] [place], [place] [phone] Social History Tobacco Use Types Packs/Day Years [...] on filedocumented in this encounter Care Teams Fine Grade Operator Relationship Specialty Start Date End Date Cheri Garcia MD [address] [place] [address] [place] [address] PCP - General 01/05/17 11/16/22 documented as of this encounter
--- OUTSIDE RECORDS SUMMARY | 2024-09-05 08:14 | XMS_ITS | Encounter Summary ---
Author Organization [facility] Address [address] [place] [address] Phone Care Team Providers Care [employer] Advisor Name Role Phone Cheri Garcia MD Primary Care Provider [phone] Encounter Details Date Type Department Care Team (Late st Contact Info) Description 07/04/2012 Documentation [facility] [place] [address] [place] [address] Family Medicine, Physician [address] [place], [place] [phone] Social History Tobacco Use Types Packs/Day Years [...] on filedocumented in this encounter Care Teams [employer] Advisor Relationship Specialty Start Date End Date Cheri Garcia MD [address] [place] [address] [place] [address] PCP - General 01/05/17 11/16/22 documented as of this encounter
--- OUTSIDE RECORDS SUMMARY | 2024-09-05 08:14 | XMS_ITS | Encounter Summary ---
Author Organization [facility] Address [address] [place] [address] Phone Care Team Providers Care Network Announcer Name Role Phone Cheri Garcia MD Primary Care Provider [phone] Encounter Details Date Type Department Care Team (Late st Contact Info) Description 03/21/2011 Documentation [facility] [place] Family Medicine [address] [place] [address] Family Medicine, Physician [address] [place], [place] [phone] Social History Tobacco Use Types Packs/Day Years [...] on filedocumented in this encounter Care Teams Network Announcer Relationship Specialty Start Date End Date Cheri Garcia MD [address] [place] [address] [place] [address] PCP - General 01/05/17 11/16/22 documented as of this encounter
--- OUTSIDE RECORDS SUMMARY | 2024-09-05 08:14 | XMS_ITS | Encounter Summary ---
Author Organization [facility] Address [address] [place] [address] Phone Care Team Providers Care Statistical Technician Name Role Phone Cheri Garcia MD Primary Care Provider [phone] Encounter Details Date Type Department Care Team (Late st Contact Info) Description 09/10/2009 Documentation [facility] [place] [address] [place] [address] Family Medicine, Physician [address] [place], [place] [phone] Social History Tobacco Use Types Packs/Day Years [...] on filedocumented in this encounter Care Teams Statistical Technician Relationship Specialty Start Date End Date Cheri Garcia MD [address] [place] [address] [place] [address] PCP - General 01/05/17 11/16/22 documented as of this encounter
--- OUTSIDE RECORDS SUMMARY | 2024-09-05 08:14 | XMS_ITS | Encounter Summary ---
Author Organization [facility] Address [address] [place] [address] Phone Care Team Providers Care Inventory Control Assistant Name Role Phone Cheri Garcia MD Primary Care Provider [phone] Encounter Details Date Type Department Care Team (Late st Contact Info) Description 08/24/2011 Documentation [facility] [place] [address] [place] [address] Family Medicine, Physician [address] [place], [place] [phone] Social History Tobacco Use Types Packs/Day Years [...] on filedocumented in this encounter Care Teams Inventory Control Assistant Relationship Specialty Start Date End Date Cheri Garcia MD [address] [place] [address] [place] [address] PCP - General 01/05/17 11/16/22 documented as of this encounter
--- OUTSIDE RECORDS SUMMARY | 2024-09-05 08:15 | XMS_ITS | Encounter Summary ---
Author Organization [facility] Address [address] [place] [address] Phone Care Team Providers Care Personal Banking Officer Name Role Phone Cheri Garcia MD Primary Care Provider [phone] Encounter Details Date Type Department Care Team (Late st Contact Info) Description 12/12/2012 Documentation [facility] [place] [address] [place] [address] Family Medicine, Physician [address] [place], [place] [phone] Social History Tobacco Use Types Packs/Day Years [...] on filedocumented in this encounter Care Teams Personal Banking Officer Relationship Specialty Start Date End Date Cheri Garcia MD [address] [place] [address] [place] [address] PCP - General 01/05/17 11/16/22 documented as of this encounter
--- OUTSIDE RECORDS SUMMARY | 2024-09-05 08:15 | XMS_ITS | Clinical Summary ---
Author Organization [facility] Address [address] [place] [address] Phone Care Team Providers Care Inspector Pawnshop Detail Name Role Phone Unavailable Primary Care Provider [...]
--- OUTSIDE RECORDS SUMMARY | 2024-09-05 08:15 | XMS_ITS | Encounter Summary ---
Author Organization [facility] Address [address] [place] [address] Phone Care Team Providers Care School Curriculum Developer Name Role Phone Cheri Garcia MD Primary Care Provider [phone] Encounter Details Date Type Department Care Team (Late st Contact Info) Description 04/12/2015 Documentation [facility] [place] [address] [place] [address] Family Medicine, Physician [address] [place] [address] Social History Tobacco Use Types Packs/Day Years [...] on filedocumented in this encounter Care Teams School Curriculum Developer Relationship Specialty Start Date End Date Cheri Garcia MD [address] [place] [address] PCP - General 01/05/17 11/16/22 documented as of this encounter
--- OUTSIDE RECORDS SUMMARY | 2024-09-05 08:15 | XMS_ITS | Encounter Summary ---
Author Organization [facility] Address [address] [place] [address] Phone Care Team Providers Care Calculation Reviewer Name Role Phone Cheri Garcia MD Primary Care Provider [phone] Encounter Details Date Type Department Care Team (Late st Contact Info) Description 03/21/2011 Documentation [facility] [place] [address] [place] [address] Family Medicine, Physician [address] [place], [place] [phone] Social History Tobacco Use Types Packs/Day Years [...] on filedocumented in this encounter Care Teams Calculation Reviewer Relationship Specialty Start Date End Date Cheri Garcia MD [address] [place] [address] [place] [address] PCP - General 01/05/17 11/16/22 documented as of this encounter
== END 2024-09-05 08:09 | disposition home or self-care (01) ==
LOC: HO.MRI 08:08
PROVIDERS: Visit Provider Physician Assistant
DX: M54.50 Low back pain, unspecified (principal)
CPT/HCPCS: 72148

== ENCOUNTER 2025-04-15 11:28 | Outpatient (REF) | payer OTHER, SELFPAY ==
[2025-04-15 13:45] LABS: Alanine Aminotransferase 16 U/L (0-31); Albumin Level 4.3 g/dL (3.5-5.0); Alkaline Phosphatase 69 U/L (39-117); Anion Gap 13 (12-20); Aspartate Amino Transferase 26 U/L (5-31); Blood Urea Nitrogen 13 mg/dL (9-16); Calcium 9.3 mg/dL (8.4-10.2); Carbon Dioxide 22 mmol/L (22-29); Chloride 106 mmol/L (96-108); Estimated Glomerular Filt Rate > 60; Potassium 4.0 mmol/L (3.3-5.1); Sodium 137 mmol/L (135-145); Thyroid Stimulating Hormone 1.67 uIU/mL (0.32-4.0); Total Protein 7.7 g/dL (6.5-8.0)
[2025-04-15 14:58] LABS: Vitamin B12 326 pg/mL (200-900)
--- OUTSIDE RECORDS SUMMARY | 2025-04-15 22:38 | XMS_ITS | Encounter Summary ---
Author Organization [facility] Address [address] [place] [address] Phone Care Team Providers Care Betting Clerks Name Role Phone Cheri Garcia MD Primary Care Provider [phone] Encounter Details Date Type Department Care Team (Late st Contact Info) Description 08/24/2011 Documentation [facility] [place] [address] [place] [address] Family Medicine, Physician [address] [place], [place] [phone] Social History Tobacco Use Types Packs/Day Years [...] on filedocumented in this encounter Care Teams Betting Clerks Relationship Specialty Start Date End Date Cheri Garcia MD [address] [place] [address] [place] [address] PCP - General 01/05/17 11/16/22 documented as of this encounter
--- OUTSIDE RECORDS SUMMARY | 2025-04-15 22:38 | XMS_ITS | Clinical Summary ---
Author Organization [facility] Address [address] [place] [address] Phone Care Team Providers Care Spare Hand Name Role Phone Unavailable Primary Care Provider [...] 92 04/09/2012 12:00 AM EST Temperature 36.7 C (98 F) 09/25/2012 12:00 AM EDT Respiratory Rate - [...] 05/07/1996, Additional history exists Influenza Vaccines (#1) 2024 COVID-19 Vaccine (2024- season) 2025 Hepatitis B Vaccines Completed 09/07/1992, 01/12/1992, 1991 [...]
--- OUTSIDE RECORDS SUMMARY | 2025-04-15 22:38 | XMS_ITS | Encounter Summary ---
Author Organization [facility] Address [address] [place] [address] Phone Care Team Providers Care Switchman Supervisor Name Role Phone Cheri Garcia MD Primary Care Provider [phone] Encounter Details Date Type Department Care Team (Late st Contact Info) Description 11/02/2011 Documentation [facility] [place] [address] [place] [address] Family Medicine, Physician [address] [place], [place] [phone] Social History Tobacco Use Types Packs/Day Years [...] on filedocumented in this encounter Care Teams Switchman Supervisor Relationship Specialty Start Date End Date Cheri Garcia MD [address] [place] [address] [place] [address] PCP - General 01/05/17 11/16/22 documented as of this encounter
--- OUTSIDE RECORDS SUMMARY | 2025-04-15 22:38 | XMS_ITS | Encounter Summary ---
Author Organization [facility] Address [address] [place] [address] Phone Care Team Providers Care Assessment Consultant Name Role Phone Cheri Garcia MD Primary Care Provider [phone] Encounter Details Date Type Department Care Team (Late st Contact Info) Description 02/05/2012 Documentation [facility] [place] [address] [place] [address] Family Medicine, Physician [address] [place], [place] [phone] Social History Tobacco Use Types Packs/Day Years [...] on filedocumented in this encounter Care Teams Assessment Consultant Relationship Specialty Start Date End Date Cheri Garcia MD [address] [place] [address] [place] [address] PCP - General 01/05/17 11/16/22 documented as of this encounter
--- OUTSIDE RECORDS SUMMARY | 2025-04-15 22:38 | XMS_ITS | Encounter Summary ---
Author Organization [facility] Address [address] [place] [address] Phone Care Team Providers Care Vp Security Name Role Phone Cheri Garcia MD Primary Care Provider [phone] Encounter Details Date Type Department Care Team (Late st Contact Info) Description 09/10/2009 Documentation [facility] [place] [address] [place] [address] Family Medicine, Physician [address] [place], [place] [phone] Social History Tobacco Use Types Packs/Day Years [...] on filedocumented in this encounter Care Teams Vp Security Relationship Specialty Start Date End Date Cheri Garcia MD [address] [place] [address] [place] [address] PCP - General 01/05/17 11/16/22 documented as of this encounter
--- OUTSIDE RECORDS SUMMARY | 2025-04-15 22:38 | XMS_ITS | Encounter Summary ---
Author Organization [facility] Address [address] [place] [address] Phone Care Team Providers Care Dealer Relationship Manager Name Role Phone Cheri Garcia MD Primary Care Provider [phone] Encounter Details Date Type Department Care Team (Late st Contact Info) Description 12/12/2012 Documentation [facility] [place] [address] [place] [address] Family Medicine, Physician [address] [place], [place] [phone] Social History Tobacco Use Types Packs/Day Years [...] on filedocumented in this encounter Care Teams Dealer Relationship Manager Relationship Specialty Start Date End Date Cheri Garcia MD [address] [place] [address] [place] [address] PCP - General 01/05/17 11/16/22 documented as of this encounter
--- OUTSIDE RECORDS SUMMARY | 2025-04-15 22:38 | XMS_ITS | Encounter Summary ---
Author Organization [facility] Address [address] [place] [address] Phone Care Team Providers Care Cage Unloader Name Role Phone Cheri Garcia MD Primary Care Provider [phone] Encounter Details Date Type Department Care Team (Late st Contact Info) Description 03/21/2011 Documentation [facility] [place] [address] [place] [address] Family Medicine, Physician [address] [place], [place] [phone] Social History Tobacco Use Types Packs/Day Years [...] on filedocumented in this encounter Care Teams Cage Unloader Relationship Specialty Start Date End Date Cheri Garcia MD [address] [place] [address] [place] [address] PCP - General 01/05/17 11/16/22 documented as of this encounter
--- OUTSIDE RECORDS SUMMARY | 2025-04-15 22:38 | XMS_ITS | Encounter Summary ---
Author Organization [facility] Address [address] [place] [address] Phone Care Team Providers Care Patternmaker Bench Name Role Phone Cheri Garcia MD Primary Care Provider [phone] Encounter Details Date Type Department Care Team (Late st Contact Info) Description 01/11/2017 Conversion Encounter [facility] [address] [place] [address] Social History Tobacco Use Types Packs/Day Years [...] on filedocumented in this encounter Care Teams Patternmaker Bench Relationship Specialty Start Date End Date Cheri Garcia MD [address] [place] [address] PCP - General 01/05/17 11/16/22 documented as of this encounter
--- OUTSIDE RECORDS SUMMARY | 2025-04-15 22:38 | XMS_ITS | Encounter Summary ---
Author Organization [facility] Address [address] [place] [address] Phone Care Team Providers Care Multimedia Coordinator Name Role Phone Cheri Garcia MD Primary Care Provider [phone] Encounter Details Date Type Department Care Team (Late st Contact Info) Description 07/04/2012 Documentation [facility] [place] [address] [place] [address] Family Medicine, Physician [address] [place], [place] [phone] Social History Tobacco Use Types Packs/Day Years [...] on filedocumented in this encounter Care Teams Multimedia Coordinator Relationship Specialty Start Date End Date Cheri Garcia MD [address] [place] [address] [place] [address] PCP - General 01/05/17 11/16/22 documented as of this encounter
--- OUTSIDE RECORDS SUMMARY | 2025-04-15 22:38 | XMS_ITS | Encounter Summary ---
Author Organization [facility] Address [address] [place] [phone] Phone Care Team Providers Care Case Investigator Name Role Phone Cheri Garcia MD Primary Care Provider [phone] Encounter Details Date Type Department Care Team (Late st Contact Info) Description 06/29/2011 Documentation [facility] [place] [facility] [address] [place] [address] Family Medicine, Physician [address] [place], [place] [id number] Social History Tobacco Use Types Packs/Day Years [...] on filedocumented in this encounter Care Teams Case Investigator Relationship Specialty Start Date End Date Cheri Garcia MD [address] [place] [address] [place] [address] PCP - General 01/05/17 11/16/22 documented as of this encounter
--- OUTSIDE RECORDS SUMMARY | 2025-04-15 22:38 | XMS_ITS | Encounter Summary ---
Author Organization [facility] Address [address] [place] [id number] Phone Care Team Providers Care Paint Laboratory Technician Name Role Phone Cheri Garcia MD Primary Care Provider [phone] Encounter Details Date Type Department Care Team (Late st Contact Info) Description 03/21/2011 Documentation [facility] [place] [address] [place] [address] Family Medicine, Physician [address] [place], [place] [phone] Social History Tobacco Use Types Packs/Day Years [...] on filedocumented in this encounter Care Teams Paint Laboratory Technician Relationship Specialty Start Date End Date Cheri Garcia MD [address] [place] [address] [place] [address] PCP - General 01/05/17 11/16/22 documented as of this encounter
--- OUTSIDE RECORDS SUMMARY | 2025-04-15 22:38 | XMS_ITS | Encounter Summary ---
Author Organization [facility] Address [address] [place] [id number] Phone Care Team Providers Care Boiler Plant Worker Name Role Phone Cheri Garcia MD Primary Care Provider [phone] Encounter Details Date Type Department Care Team (Late st Contact Info) Description 04/12/2015 Documentation [facility] [place] [address] [place] [address] Family Medicine, Physician [address] [place] [address] Social History Tobacco Use Types Packs/Day Years [...] on filedocumented in this encounter Care Teams Boiler Plant Worker Relationship Specialty Start Date End Date Cheri Garcia MD [address] [place] [address] PCP - General 01/05/17 11/16/22 documented as of this encounter
[2025-04-16 08:47] LABS: ~HepC Num1 0.11 S/CO (0.00-0.79); ~Hepatitis C Antibody Nonreactive (Nonreactive)
[2025-04-16 21:44] LABS: Anti Nuclear Antibody Pattern Nuclear, Speckled; Anti Nuclear Antibody Screen POSITIVE (NEGATIVE); Anti Nuclear Antibody Titer 1:80 titer
== END 2025-04-15 11:29 | disposition home or self-care (01) ==
LOC: HO.LAB 11:28
DX: Z01.84 Encounter for antibody response examination (principal); Z11.59 Encounter for screening for other viral diseases; Z13.1 Encounter for screening for diabetes mellitus; M25.50 Pain in unspecified joint; R63.5 Abnormal weight gain
CPT/HCPCS: 36415; 80053; 82607; 83036; 84443; 85652; 86038; 86039; 86140; 86803